=== PATIENT | male | born 1995 | race African-American/Black ===

== ENCOUNTER 2016-10-25 18:54 | Emergency (ER) | payer OTHER ==
[2016-10-25 16:39] LABS: BASOPHILS 0.4 %; BASOPHILS ABSOLUTE 0.03 10/3/uL (0.0-0.16); EOSINOPHILS 2.1 %; EOSINOPHILS ABSOLUTE 0.16 10/3/uL (0.0-0.53); HEMOGLOBIN 14.1 g/dL (13.6-17.8); IMMATURE GRANULOCYTES 0.1 %; IMMATURE GRANULOCYTES ABSOLUTE 0.01 10/3/uL (0.0-0.11); LYMPHOCYTES 31.5 %; LYMPHOCYTES ABSOLUTE 2.35 10/3/uL (0.67-4.30); MEAN CORPUS HGB CONC 34.4 g/dL (32.0-36.0); MEAN CORPUSCULAR HEMOGLOB 31.1 pg (26.0-34.0); MEAN CORPUSCULAR VOLUME 90.5 fL (80-100); MEAN PLATELET VOLUME 10.3 fL (9.2-13.0); MONOCYTES 8.2 %; MONOCYTES ABSOLUTE 0.61 10/3/uL (0.21-1.20); NEUTROPHILS 57.7 %; NEUTROPHILS ABSOLUTE 4.29 10/3/uL (2.02-8.40); PLATELET COUNT 193 10/3/uL (150-400); RBC DISTRIBUTION WIDTH 12.1 % (12.0-16.0); RED CELL COUNT 4.53 10/6/uL (4.7-6.1); WHITE BLOOD CELLS 7.5 10/3/uL (4.5-10.5)
[2016-10-25 16:40] LABS: MANUAL DIFF NO %
[2016-10-25 16:47] LABS: ASCORBIC ACID (UR NOT ORDER) NEG (NEG); BILIRUBIN, URINE NEGATIVE (NEG); ER URINALYSIS TAT 0 Hrs 14 Mins; KETONE, URINE NEGATIVE (NEG); LEUKOCYTE ESTERASE(NOT OR MOD (NEG); NITRITE (URINE) NEG (NEG); WBC (NOT ORDERED) (RFLEX) 84 (0-5)
[2016-10-25 16:57] LABS: A/G RATIO 1.4 (0.7-1.9); ALBUMIN 4.1 G/DL (3.5-5.0); ALKALINE PHOSPHATASE 107 U/L (43-122); BUN (BLOOD UREA NITROGEN) 10 MG/DL (5-25); CHLORIDE, SERUM 108 MMOL/L (96-112); CO2 (CARBON DIOXIDE) 26 MMOL/L (23-31); CREATININE 0.82 MG/DL (0.70-1.30); GFR AFRICAN AMERICAN 149 ML/MIN (>=60); GFR NON AFRICAN AMERICAN 128 ML/MIN (>=60); GLOBULIN 2.9 G/DL (2.5-4.1); GLUCOSE, SERUM 83 MG/DL (60-99); POTASSIUM, SERUM 3.9 MMOL/L (3.5-5.2); SGOT(AST) 11 U/L (8-40); SGPT(ALT) 13 U/L (5-65); SODIUM, SERUM 140 MMOL/L (135-145); TOTAL BILIRUBIN 0.6 MG/DL (0-1.2)
== END 2016-10-25 21:38 | disposition home or self-care (01) ==
LOC: ER 18:54
PROVIDERS: Emergency Medicine
DX: R31.9 Hematuria, unspecified (principal); N39.0 Urinary tract infection, site not specified
CPT/HCPCS: 74176; 80053; 81001; 83690; 85025; 87086; 96372; 99284; A9270-GY; J0696